=== PATIENT | female | born 1990 | race Caucasian/White ===

== ENCOUNTER 2024-02-14 09:16 | Emergency (ER) | payer OTHER, SELFPAY ==
[2024-02-14] VITALS (8 sets, daily range): BP systolic 143–162; BP diastolic 90–111
--- NOTE | 2024-02-14 10:17 | ED.GENMED ---
History of Present Illness
General
Chief Complaint: Abdominal Pain
Source: patient
Exam Limitations: none
Time Seen by Provider: 02/14/24 09:44
Nursing documentation reviewed up to this point in time: agreed with
Travel History
Have you had any contact with someone who has COVID-19?: No
Do you have any symptoms of coronavirus? Fever > 100 degrees, chills, cough, shortness of breath, sore throat, loss of taste or smell, muscle aches, or headache?: No
History of Present Illness
History of Present Illness:
33-year-old female presents to the ER for evaluation. Patient reports for the past week she has had abdominal pain and right-sided back pain. She denies any lower abdominal pain/cramping it feels achy but mostly constant. She denies any injury is
not made worse with movement twisting turning. She does feel bloated. She denies any urinary frequency urgency or dysuria. Denies any hematuria. Denies any prior history of kidney stone. She denies any associated fever or chills. Pain is not
made worse with eating.
Review of Systems
Review of Systems
Allergies reviewed?: Yes
All Other Systems: ROS reviewed and negative except as documented in HPI and ROS
Constitutional: Reports no symptoms; Denies fever, fatigue or chills
Respiratory: Reports no symptoms
Cardiac: Reports no symptoms
ABD/GI: Reports abdominal pain; Denies nausea, vomiting or diarrhea
Musculoskeletal: Reports no symptoms
Skin: Reports no symptoms
Neurological: Reports no symptoms
Endocrine: Reports no symptoms
Phy Exam
General Physical Exam
General Presentation: no apparent distress
General age: appears stated age
General Skin: warm and dry
General Habitus: normal
General Mental: alert
General Hydration: appears well hydrated
Gastrointestinal Exam
Gastrointestinal Exam: soft and other (abd soft mild non specific tenderness to mid abdomen no lower abd tenderness )
Neurological Exam
Neurological Exam: alert and oriented x3
[place] Coma Scale
Eye Opening: Spontaneous
Verbal Response: Oriented
Motor Response: Obeys Commands
GCS Total Score: 15
Musculoskeletal Exam
Musculoskeletal Exam: full ROM
Skin Exam
Skin Exam: normal color and warm/dry
Psychiatric Exam
Psychiatric Exam: normal mood/affect
Course
Orders/Labs/Results
Orders:
Orders
02/14/24 10:05
Test Result ONCE
02/14/24 10:06
CMP [Comprehensive Metabolic Panel] Urgent
Complete Blood Count/With Diff Urgent
HCG, Serum Qualitative Screen Urgent
Lipase Urgent
Urinalysis Reflex To Culture Urgent
Date Specimen was Collected: 02/14/24
Time Specimen was Collected: 10:05
02/14/24 10:56
Iohexol [Omnipaque] See Protocol PO NOW STA
02/14/24 10:57
CT Abd/pel W Iv And Oral Contr Urgent
Comment:
Reason For Exam: abd pain and right sided back pain
0.9% Sodium Chloride 1000 ml [Nss] 1,000 ml IV BOLUS
Abnormal Lab Results
02/14/24
10:06
BUN 20 H mg/dl
(17)
02/14/24 10:06
02/14/24 10:06
Vital Signs
Initial and Last Documented VS:
Initial Vital Signs
Temp Pulse Resp BP Pulse Ox
98.4 F 93 18 162/111 100
02/14/24 09:17 02/14/24 09:17 02/14/24 09:17 02/14/24 09:17 02/14/24 09:17
Last Documented Vital Signs
Temp Pulse Resp BP Pulse Ox
98.4 F 73 18 143/90 100
02/14/24 09:17 02/14/24 13:00 02/14/24 09:17 02/14/24 13:00 02/14/24 12:20
Polymer Tester consulted with Physician
Polymer Tester consulted with physician?: Yes
Name of Physician Consulted: Romulo
MDM/Problems Addressed
Differential Diagnosis Includes:
not limtied to: Diverticulitis appendicitis biliary colic renal stone
MDM/Problems Addressed:
33 yr old female presented w/ abd pain and back pain. Pt is in no distress abdomen soft minimal nonspecific tenderness denies any recent fever chills afebrile stable vital signs. Unremarkable labs. Negative UTI symptoms and negative urine. CAT
scan shows prominence of the pelvic vasculature suggesting pelvic congestion. Did review this with [employer] patient to follow-up with director translation nothing further to do with the ER she may take ibuprofen if needed. Incidentally I did report patient
follow-up for 1 point centimeter low-density mass in the right lower lobe of the liver.
Patient is no acute distress stable for discharge home l
*Radiology
Radiology exam reviewed: radiology read reviewed
*Pulse Oximetry
Patient hypoxic: no
*Critical Care Note
Total Time (30-74mins, 75-104mins- exclusive of procedures): Not Applicable
ED Attending Note
-
Portions of this chart may have been created with voice recognition software.� Occasional wrong word or��sound alike� substitutions may have occurred due to the inherent limitations of voice recognition software.
Discharge Plan
Departure
Patient Disposition: Home (Routine Discharge)
Date of Disposition: 02/14/24
Time of Disposition: 14:25
Patient with high blood pressure during this ER visit?: Yes
Condition: Fair
Covid-19: Not Applicable
Discharge Problem:
Abdominal pain
Instructions: Abdominal Pain, BLOOD PRESSURE
Prescriptions:
No Action
No Current Medications
0
Referrals:
Scot Kingston MD [Family Provider] -
Activity Restrictions/Additional Instructions:
Follow-up with your director translation for further evaluation of pelvic congestion. Call your director translation in the next several days .
you may take ibuprofen as needed. In addition follow-up with your family doctor for further evaluation of incidental finding on your right lobe of your liver which is likely hemangioma further imaging may include ultrasound. Return if any
worsening of symptoms.
Interventions
Interventions:
*Risk Screen - Suicide Last Done: 02/14/24 09:18
*General Assessment Last Done: 02/14/24 09:18
*Neglect/Abuse Screening Last Done: 02/14/24 09:18
ED- Fall Risk Assessment Last Done: 02/14/24 10:15
*ED COVID-19 Vaccine History Last Done: 02/14/24 10:04
EJ-Vktpzf-Jpnzqbxvtc Assessment Last Done: 02/14/24 10:15
Discharge Date and Time
Print Language: WELSH
[2024-02-14 10:18] LABS: Urine Albumin Negative (Neg - Trace); Urine Bilirubin Negative (Negative); Urine Character Clear (Clear); Urine Color Yellow; Urine Glucose Negative (Negative); Urine Ketone Negative (Negative); Urine Leukocyte Negative (Negative); Urine Nitrite Negative (Negative); Urine Occult Blood Negative (Negative); Urine Specific Gravity 1.005 (<1.030); Urine Urobilinogen Negative (Neg - 1+); Urine pH 6.5 (5.0-9.0)
[2024-02-14 10:25] LABS: HCG, Serum Qualitative Screen Negative
[2024-02-14 10:27] LABS: ALT (SGPT) 17 U/L (0-35); AST (SGOT) 26 U/L (14-36); Albumin 4.3 g/dl (3.5-5.0); Alkaline Phosphatase 55 U/L (38-126); Blood Urea Nitrogen 20 mg/dl (7-17); Calcium 9.5 mg/dl (8.4-10.2); Carbon Dioxide 28 mmol/L (22-30); Chloride 106 mmol/L (98-107); Estimated Creatinine Clearance 76 ml/min; Glucose 91 mg/dl (70-99); Lipase 61 U/L (23-300); Potassium 3.6 mmol/L (3.5-5.1); Sodium 136 mmol/L (135-145); Total Bilirubin 0.5 mg/dl (0.2-1.3); eGFR > 60.00
[2024-02-14 10:29] LABS: % Basophils 0.5 % (0-2); % Eosinophils 2.5 % (0-6); % Immature Granulocytes 0.2 % (0-0.5); % Lymphocytes 28.1 % (20.5-51.1); % Monocytes 9.1 % (1.7-9.3); % Neutrophils 59.6 % (42.2-75.2); Absolute Eosinophils 0.2 10^3/uL (0-0.7); Absolute Lymphocytes 1.7 10^3/uL (1.2-3.4); Absolute Monocytes 0.5 10^3/uL (0.1-0.6); Absolute Neutrophils 3.5 10^3/uL (1.4-6.5); Hematocrit 40.1 % (37.0-47.0); Hemoglobin 13.6 g/dL (12.0-16.0); Mean Corp Hgb Conc. 33.9 g/dL (33.0-37.0); Mean Corpuscular Volume 88.3 fL (81.0-99.0); Mean Platelet Volume 10.2 fL (7.4-10.4); Nucleated Red Blood Cells % 0 %; Platelet Count 208 10^3/uL (130-400); Red Blood Cell Count 4.54 10^6/uL (4.20-5.40); Red Cell Dist. Width 12.4 % (11.5-14.5); White Blood Cell Count 5.9 10^3/uL (4.8-10.8)
[2024-02-14] MEDS: OMNIPAQUE 50 ML PO (11:10)
[2024-02-14] MEDS: NSS 1000 IV (11:10)
== END 2024-02-14 14:41 | disposition home or self-care (01) ==
LOC: EMR 09:16
PROVIDERS: EMERGENCY PHYSICIAN Emergency Medicine; FAMILY PHYSICIAN Internal Medicine
DX: R10.9 Unspecified abdominal pain (principal); R03.0 Elevated blood-pressure reading, without diagnosis of hypertension
CPT/HCPCS: 99285; 96360; 74177; 80053; 81003; 83690; 84703; 85025; Q9967

== ENCOUNTER → 2024-03-10 13:56 | Outpatient (REF) | payer OTHER, SELFPAY | LOC: HWRAD 13:56 | PROVIDERS: ATTENDING PHYSICIAN Specialist; FAMILY PHYSICIAN Internal Medicine | DX: R10.2 Pelvic and perineal pain (principal); N94.89 Other specified conditions associated with female genital organs and menstrual cycle | CPT/HCPCS: 76830; 76856 ==

== ENCOUNTER → 2024-11-19 09:39 | Outpatient (REF) | payer OTHER, SELFPAY | LOC: WDC 09:39 | PROVIDERS: ATTENDING PHYSICIAN Obstetrics & Gynecology | DX: N64.4 Mastodynia (principal); N63.10 Unspecified lump in the right breast, unspecified quadrant; N63.11 Unspecified lump in the right breast, upper outer quadrant | CPT/HCPCS: 76642; 77062; 77066 ==